=== PATIENT | male | born 1975 | race American Indian/Alaskan Native ===

== ENCOUNTER 2017-02-07 17:40 | Emergency (ER) | payer SELFPAY ==
[2017-02-07 19:14] VITALS: BP 132/82
--- NOTE | 2017-02-07 19:19 | Emergency Department Report ---
ED Neck Pain/Injury HPI - General Chief Complaint: Neck Pain/Injury Stated Complaint: NECK PAIN Time Seen by Provider: 02/07/17 19:14 Mode of arrival: Ambulatory Limitations: No Limitations - History of Present Illness Initial Comments: 41M PMH none p/w c/o right sided neck spasm since this afternoon. 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 Often lifts heavy weights. Denies any direct trauma to the shoulder, denies fever or chills denies chest pain palpitations shortness of breath. Denies nausea or vomiting. Denies diffuse body aches strictly states that his right upper shoulder near his trapezius has been spasming slightly. MD Complaint: neck pain -: This afternoon Place: home Radiation: right shoulder Severity: moderate Severity scale (0 -10): 6 Quality: aching Consistency: intermittent Improves With: none Worsens With: none Associated Symptoms: none Treatments Prior to Arrival: none - Related Data Previous Rx's Medication Instructions Recorded Last Taken Type Cyclobenzaprine [Flexeril 10 MG 10 mg PO Q8H PRN #21 tablet 01/13/15 Unknown Rx TAB] HYDROcodone/APAP 5-325 [[place] 1 each PO Q6HR PRN #12 tablet 01/13/15 Unknown Rx 5/325] Ranitidine HCl [Zantac 150 MG TAB] 150 mg PO Q12H #60 tablet 01/13/15 Unknown Rx Cyclobenzaprine [Flexeril 10 MG 10 mg PO TID PRN #20 tablet 02/07/17 Unknown Rx TAB] Naproxen 500 mg PO BID PRN #30 tablet 02/07/17 Unknown Rx Allergies Allergy/AdvReac Type Severity Reaction Status Date / Time No Known Allergies Allergy Verified 01/12/15 22:57 ED Review of Systems ROS: Stated complaint: NECK PAIN Other details as noted in HPI Constitutional: denies: chills, fever Eyes: denies: eye pain, eye discharge, vision change ENT: denies: ear pain, throat pain Respiratory: denies: cough, shortness of breath, wheezing Cardiovascular: chest pain. denies: palpitations Endocrine: no symptoms reported Gastrointestinal: denies: abdominal pain, nausea, diarrhea Genitourinary: denies: urgency, dysuria Musculoskeletal: denies: back pain, joint swelling, arthralgia Skin: denies: rash, lesions Neurological: denies: headache, weakness, paresthesias Psychiatric: denies: anxiety, depression Hematological/Lymphatic: denies: easy bleeding, easy bruising ED Past Medical Hx - Past Medical History Previous Medical History?: Yes Hx GERD: Yes - Surgical History Past Surgical History?: No - Social History Smoking Status: Never Smoker - Medications Home Medications: Home Medications Medication Instructions Recorded Confirmed Last Taken Type Cyclobenzaprine [Flexeril 10 MG 10 mg PO Q8H PRN #21 tablet 01/13/15 Unknown Rx TAB] HYDROcodone/APAP 5-325 [[place] 1 each PO Q6HR PRN #12 tablet 01/13/15 Unknown Rx 5/325] Ranitidine HCl [Zantac 150 MG TAB] 150 mg PO Q12H #60 tablet 01/13/15 Unknown Rx Cyclobenzaprine [Flexeril 10 MG 10 mg PO TID PRN #20 tablet 02/07/17 Unknown Rx TAB] Naproxen 500 mg PO BID PRN #30 tablet 02/07/17 Unknown Rx ED Physical Exam - General Limitations: No Limitations General appearance: alert, in no apparent distress - Head Head exam: Present: atraumatic, normocephalic - Eye Eye exam: Present: normal appearance, PERRL, EOMI - ENT ENT exam: Present: mucous membranes moist - Neck Neck exam: Present: normal inspection - Respiratory Respiratory exam: Present: normal lung sounds bilaterally. Absent: respiratory distress - Cardiovascular Cardiovascular Exam: Present: regular rate, normal rhythm. Absent: systolic murmur, diastolic murmur, rubs, gallop - GI/Abdominal GI/Abdominal exam: Present: soft, normal bowel sounds - Rectal Rectal exam: Present: deferred - Extremities Exam Extremities exam: Present: normal inspection - Expanded Upper Extremity Exam Right Shoulder Exam: Present: tenderness (poitn tenderness right shoulder overlying trapezius muscle) Upper Arm exam: Present: normal inspection Elbow exam: Present: normal inspection Forearm Wrist exam: Present: normal inspection Hand Wrist exam: Present: normal inspection - Back Exam Back exam: Present: normal inspection - Neurological Exam Neurological exam: Present: alert, oriented X3, CN II-XII intact, normal gait - Psychiatric Psychiatric exam: Present: normal affect, normal mood - Skin Skin exam: Present: warm, dry, intact, normal color. Absent: rash ED Course Vital Signs 10/21/17 10/21/17 18:24 19:13 Temperature 98.6 F Pulse Rate 60 58 L Respiratory 20 18 Rate Blood Pressure 132/103 Blood Pressure 132/82 [Right] O2 Sat by Pulse 100 100 Oximetry ED Medical Decision Making - Medical Decision Making A/P: Right-sided shoulder spasm 1-trial of Flexeril and Toradol gave patient significant relief 2-no neurovascular deficits on clinical exam range of motion right shoulder fully intact to abduction and abduction and internal and external rotation. Distal pulses and sensation are intact right upper extremity. No paresthesias reported by the patient. 3-patient referred to primary care. I advised him to return to the ED if he experiences persistent spasms Critical care attestation.: If time is entered above; I have spent that time in minutes in the direct care of this critically ill patient, excluding procedure time. ED Disposition Clinical Impression: Muscle spasms of neck Disposition: - TO HOME OR SELFCARE Is pt being admited?: No Does the pt Need Aspirin: No Condition: Stable Instructions: Spasmodic Torticollis (ED), Musculoskeletal Pain (ED), Muscle Spasm (ED) Prescriptions: Cyclobenzaprine [Flexeril 10 MG TAB] 10 mg PO TID PRN #20 tablet PRN Reason: Muscle Spasm Naproxen 500 mg PO BID PRN #30 tablet PRN Reason: Pain Referrals: PRIMARY CARE, [Primary Care Provider] - 3-5 Days [facility] [Outside] - 3-5 Days [facility] [Outside] - 3-5 Days ROSEMARY MITCHELL MD [Staff Physician] - 3-5 Days Forms: Accompanied Note, Work/School Release Form(ED) Time of Disposition: 20:20
[2017-02-07] MEDS ORDERED: TORADOL IM ONE (19:24)
[2017-02-07] MEDS ORDERED: FLEXERIL PO ONE (19:25)
== END 2017-02-07 20:33 | disposition home or self-care (01) ==
LOC: ED 17:40
DX: M62.838 Other muscle spasm (principal); K21.9 Gastro-esophageal reflux disease without esophagitis
CPT/HCPCS: 96372; 99282; J1885